=== PATIENT | male | born 1955 | race American Indian/Alaskan Native ===

== ENCOUNTER 2016-09-11 16:30 | Emergency (ER) | payer SELFPAY ==
--- NOTE | 2016-09-11 17:10 | Emergency Department Report ---
ED CPR HPI - General Chief Complaint: Cardiac Arrest/CPR Stated Complaint: CARDIAC ARREST Time Seen by Provider: 09/11/16 17:02 Source: EMS Mode of arrival: Stretcher Limitations: Other - History of Present Illness Initial Comments: The patient was found by the family unresponsive and apneic. Paramedics arrived on the scene initiated ACLS protocols. They intubated the patient and gave standard medications. They noted that the patient's recently placed AICD attempted defibrillation multiple times. However there never was any return of spontaneous circulation. Paramedics state that the patient's AICD was placed approximately one week prior to this cardiac arrest. Complaint: found unresponsive -: minute(s) Place: home Bystander CPR Performed: No Initial Findings in the Field: unresponsive, systole ROSC in the Field: No - Related Data Allergies Allergy/AdvReac Type Severity Reaction Status Date / Time morphine AdvReac Unknown Verified 09/14/15 21:10 oxycodone AdvReac Unknown Verified 09/14/15 21:10 ED Review of Systems ROS: Stated complaint: CARDIAC ARREST Other details as noted in HPI Comment: Unobtainable due to pts medical conditions ED Past Medical Hx - Past Medical History Hx Hypertension: Yes Hx CVA: Yes Hx Heart Attack/AMI: Yes (multiple) Hx Diabetes: Yes Hx Arthritis: Yes (GOUT) Additional medical history: a-fib - Surgical History Hx Coronary Stent: Yes (3 stents) Hx Open Heart Surgery: Yes - Social History Smoking Status: Unknown if ever smoked ED Physical Exam - General Limitations: Other (apparently ) - Head Head exam: Present: atraumatic - Eye Pupils: Present: other (fixed dilated pupils) - ENT ENT exam: Present: normal exam - Neck Neck exam: Present: normal inspection - Respiratory Respiratory exam: Present: normal lung sounds bilaterally (with bag assist) - Cardiovascular Cardiovascular Exam: Present: other (a PEA rhythm noted) - GI/Abdominal GI/Abdominal exam: Present: distended. Absent: soft - Extremities Exam Extremities exam: Present: normal inspection - Neurological Exam Neurological exam: Present: other - Skin Skin exam: Present: warm, dry ED Course - Reevaluation(s) Reevaluation #1: Patient has had no return of spontaneous circulation despite over 15 minutes of ACLS, multiple defibrillations and a pacemaker with no return of spontaneous circulation. He arrives with what may be a paced rhythm. Doppler exam is negative. He is therefore pronounced a PEA arrest with prolonged lack of circulation. Further resuscitative efforts were deemed futile. He was pronounced DOA. Family was counseled. 09/11/16 17:13 Critical care attestation.: If time is entered above; I have spent that time in minutes in the direct care of this critically ill patient, excluding procedure time. ED Disposition Clinical Impression: Cardiac arrest Disposition: Is pt being admited?: No Does the pt Need Aspirin: No Condition: Stable Time of Disposition: 17:15
== END 2016-09-11 19:00 ==
LOC: ED 16:30
DX: I46.9 Cardiac arrest, cause unspecified (principal); I10 Essential (primary) hypertension; I25.2 Old myocardial infarction; E11.9 Type 2 diabetes mellitus without complications; Z86.73 Personal history of transient ischemic attack (TIA), and cerebral infarction without residual deficits; M19.90 Unspecified osteoarthritis, unspecified site; Z88.5 Allergy status to narcotic agent
CPT/HCPCS: 99285